=== PATIENT | female | born 1985 | race Caucasian/White ===

== ENCOUNTER 2023-07-24 21:20 | Emergency (ER) | payer MEDICAID, SELFPAY ==
[2023-07-24 21:23] VITALS: BP 101/84; PULSE 108; RESP 20; TEMP 36.8; O2SAT 100
[2023-07-24 21:50] LABS: Basophils Absolute Auto 0.1 K/mm3 (0.0-0.1); Basophils Percent Auto 0.7 % (0.2-1.2); Eosinophils Absolute Auto 0.1 K/mm3 (0-0.3); Eosinophils Percent Auto 1.1 % (0-4.4); Hematocrit 45.9 % (37.0-47.0); Hemoglobin 15.9 g/dL (12.0-15.0); Immature Granulocyte Absolute 0.02 K/mm3 (0.00-0.031); Immature Granulocyte Percent A 0.3 % (0-0.5); Lymphocytes Absolute Auto 2.41 K/mm3 (0.9-3.2); Lymphocytes Percent Auto 32.7 % (18.3-44.2); Mean Corpuscular HGB Conc 34.6 g/dl (32-36); Mean Corpuscular Hemoglobin 33.1 pg (26-34); Mean Corpuscular Volume 95.4 fl (80-100); Mean Platelet Volume 12.4 fl (7.4-10.4); Monocytes Absolute Auto 0.4 K/mm3 (0.1-0.6); Monocytes Percent Auto 5.8 % (2.6-8.5); Neutrophils Absolute Auto 4.4 K/mm3 (1.3-6.7); Neutrophils Percent Auto 59.4 % (45.5-73.1); Platelet Count Result 221 k/mm3 (150-375); Red Blood Count 4.81 M/mm3 (4.2-5.4); White Blood Count 7.4 K/mm3 (4.5-10.0)
--- NOTE | 2023-07-24 22:02 | ED.PSYCH ---
HPI - Psych General Chief Complaint: Psychiatric Symptoms <Altagracia Kulkarni PA-C - Last Filed: 08/07/23 13:33> Stated Complaint: etoh, si <Altagracia Kulkarni PA-C - Last Filed: 08/07/23 13:33> Time Seen by Provider: 07/24/23 21:47 <Altagracia Kulkarni PA-C - Last Filed: 08/07/23 13:33> Source: patient <Altagracia Kulkarni PA-C - Last Filed: 08/07/23 13:33> Mode of arrival: EMS <Altagracia Kulkarni PA-C - Last Filed: 08/07/23 13:33> Limitations: intoxication <Altagracia Kulkarni PA-C - Last Filed: 08/07/23 13:33> History of Present Illness HPI Narrative: This is a 37 year old female that presents to the ER for suicidal ideation. Reports she had been drinking at home tonight. She has been having suicidal thoughts recently. She was thinking about jumping off of a tall building. Reports no previous suicidal attempts or psychiatric hospitalizations. Patient's cousin provides some additional history. She does report patient has history of self harm. She has been expressing suicidal thoughts the last week. Her ex- called her cousin because he was worried about her. <Altagracia Kulkarni PA-C - Last Filed: 08/07/23 13:33> Related Data Allergies/Adverse Reactions: Allergies Allergy/AdvReac Type Severity Reaction Status Date / Time No Known Allergies Allergy Unverified 09/18/17 13:59 <Altagracia Kulkarni PA-C - Last Filed: 08/07/23 13:33> Review of Systems Review of Systems: CONSTITUTIONAL: Denies fever PSYCHIATRIC: Reports depression. <Altagracia Kulkarni PA-C - Last Filed: 08/07/23 13:33> All systems reviewed & are unremarkable except as noted in HPI and below <Atlagracia Kulkarni PA-C - Last Filed: 08/07/23 13:33> PMFSH Past Medical History Medical History: Medical History (Updated 08/07/23 @ 13:33 by Altagracia Kulkarni PA-C) No active medical problems <Altagracia Kulkarni PA-C - Last Filed: 08/07/23 13:33> Social History Social History: Social History Smoking status: Never smoker Alcohol intake: current Substance use type: former substance user and marijuana <Altagracia Kulkarni PA-C - Last Filed: 08/07/23 13:33> Exam Narrative: GENERAL: Disheveled, well-nourished, and in no acute distress. HEAD: Normocephalic, atraumatic. EYES: EOMI. CHEST: No respiratory distress. HEART: Regular rate EXTREMITIES: Normal range of motion. No edema. SKIN: Warm, dry, no rash. NEURO: No focal deficits. Alert and oriented x3. PSYCH: Normal mood and affect <Altagracia Kulkarni PA-C - Last Filed: 08/07/23 13:33> Course Course Emergency Course: Patient hydrating and resting. Will need to continue to await patient being sober for evaluation by crisis. Ethanol redraw timed as well as repeat CBC and BMP <Altagracia Kulkarni PA-C - Last Filed: 08/07/23 13:33> Reevaluation(s) Reevaluation #1: Patient was medically cleared and sober. Patient was evaluated by the crisis counselor. Patient denies any homicidal or suicidal ideation. Patient did sign a safety agreement. Patient have close follow-up. <Rohit Khan MD - Last Filed: 07/25/23 17:45> Vital Signs Vital signs: Vital Signs Temperature 98.2 F 07/24/23 21:23 Pulse Rate 108 H 07/24/23 21:23 Respiratory Rate 20 07/24/23 21:23 Blood Pressure 101/84 07/24/23 21:23 Pulse Oximetry 100 07/24/23 21:23 Oxygen Delivery Room Air 07/24/23 21:23 Temperature 98.2 F 07/24/23 21:23 Pulse Rate 80 07/25/23 07:16 Respiratory Rate 16 07/25/23 07:16 Blood Pressure 122/80 07/25/23 07:16 Pulse Oximetry 98 07/25/23 07:16 Oxygen Delivery Room Air 07/24/23 21:23 <Altagracia Kulkarni PA-C - Last Filed: 08/07/23 13:33> Vital Signs Temperature 98.2 F 07/24/23 21:23 Pulse Rate 108 H 07/24/23 21:23 Respiratory Rate 20 07/24/23 21:23 Blood Pressure 101/84 07/24/23 21:23 Pulse Oximetry 100 07/24/23 21:23 Oxygen Delivery Room Air 07/24/23 21:23 Temperatu
[2023-07-24 22:07] LABS: Alanine Aminotransferase 13 U/L (6-35); Albumin Level 5.1 g/dL (3.5-5.1); Alkaline Phosphatase 63 U/L (38-126); Anion Gap 15 mmol/L (4-12); Aspartate Amino Transferase 20 U/L (14-36); Bilirubin,Total 0.3 mg/dL (0.2-1.3); Blood Urea Nitrogen 5 mg/dL (7-17); Calcium 9.9 mg/dL (8.4-10.2); Carbon Dioxide 23 mmol/L (22-30); Chloride 109 mmol/L (98-107); Estimated CRCL calculation 75 ml/min; Estimated Glomerular Filt Rate > 60; Glucose 152 mg/dL (65-110); Potassium 3.4 mmol/L (3.4-5.0); Sodium 147 mmol/L (137-145)
[2023-07-24] MEDS: LACTATED RINGERS 1,000 ML 999 ML IV CONT (22:19)
[2023-07-24] MEDS: ONDANSETRON INJ 4 MG/2 ML VIAL IV PUSH (22:19)
[2023-07-24 22:26] LABS: Influenza A QL RT-PCR Negative (Negative); Influenza B QL RT-PCR Negative (Negative); RSV RNA, RT-PCR Negative (Negative); SARS-CoV-2 RNA PCR Negative (Negative)
[2023-07-24 22:33] LABS: Ethanol 350 mg/dL (<10)
[2023-07-24 23:17] LABS: Amphetamine Screen Urine Negative (Negative); Barbiturate Screen Urine Negative (Negative); Benzodiazepines Screen Urine Negative (Negative); Cannabinoid Screen Urine Positive (Negative); Cocaine Screen Urine Negative (Negative); Methadone Screen Urine Negative (Negative); Opiate Screen Urine Negative (Negative); Phencyclidine Screen Urine Negative (Negative)
[2023-07-24 23:35] LABS: Free T4 Free Thyroxine Reflex 1.19 ng/dL (0.78-2.19)
[2023-07-24 23:41] LABS: Appearance Urine Clear (Clear); Bacteria Urine None Seen /hpf; Bilirubin Urine Negative (Negative); Blood Urine 1+ (Negative); Color Urine Yellow (Yellow); Glucose Urine UA Negative (Negative); Ketones Urine Negative (Negative); Leukocyte Esterase Ur Negative LEU/UL (Negative); Nitrate Urine Negative (Negative); Non Pathogenic Casts 0-2; Protein Urine Negative (Negative); RBC Urine 0-2 /hpf (0-2); Specific Grav Ur 1.005 (1.001-1.035); Squamous Epithelial Cell Urine Occasional /hpf (Few); Urobilinogen Urine 0.2 mg/dL (<2.0); WBC Urine 0-5 /hpf (0-3)
[2023-07-24 23:42] LABS: Add Urine Microscopic? YES
--- NOTE | 2023-07-25 00:12 | PC.NURSE ---
Family at bedside states they were like to be contacted with any updates; [phone] [facility].
[2023-07-25] MEDS: THIAMINE HCL INJ 100 MG, FOLIC ACID INJ 1 MG, MAGNESIUM SULFATE INJ 1 GM in LACTATED RI... IV CONT (00:25)
[2023-07-25] MEDS: ACETAMINOPHEN 325 MG TABLET 650 MG PO (06:49)
[2023-07-25 07:16] VITALS: BP 122/80; PULSE 80; RESP 16; O2SAT 98
--- NOTE | 2023-07-25 07:38 | PC.NURSE ---
Breakfast tray ordered for pt.
[2023-07-25 08:34] LABS: Basophils Percent Auto 0.4 % (0.2-1.2); Eosinophils Absolute Auto 0.1 K/mm3 (0-0.3); Eosinophils Percent Auto 0.6 % (0-4.4); Ethanol 93 mg/dL (<10); Hematocrit 38.8 % (37.0-47.0); Hemoglobin 13.1 g/dL (12.0-15.0); Immature Granulocyte Absolute 0.03 K/mm3 (0.00-0.031); Immature Granulocyte Percent A 0.4 % (0-0.5); Lymphocytes Absolute Auto 1.41 K/mm3 (0.9-3.2); Lymphocytes Percent Auto 17.6 % (18.3-44.2); Mean Corpuscular HGB Conc 33.8 g/dl (32-36); Mean Corpuscular Hemoglobin 32.6 pg (26-34); Mean Corpuscular Volume 96.5 fl (80-100); Mean Platelet Volume 12.3 fl (7.4-10.4); Monocytes Absolute Auto 0.7 K/mm3 (0.1-0.6); Monocytes Percent Auto 8.3 % (2.6-8.5); Neutrophils Absolute Auto 5.8 K/mm3 (1.3-6.7); Neutrophils Percent Auto 72.7 % (45.5-73.1); Platelet Count Result 182 k/mm3 (150-375); Red Blood Count 4.02 M/mm3 (4.2-5.4)
[2023-07-25 08:36] LABS: Anion Gap 5 mmol/L (4-12); Blood Urea Nitrogen 5 mg/dL (7-17); Calcium 8.5 mg/dL (8.4-10.2); Carbon Dioxide 28 mmol/L (22-30); Chloride 108 mmol/L (98-107); Estimated CRCL calculation 98 ml/min; Estimated Glomerular Filt Rate > 60; Glucose 98 mg/dL (65-110); Potassium 3.7 mmol/L (3.4-5.0); Sodium 141 mmol/L (137-145)
== END 2023-07-25 10:49 | disposition home or self-care (01) ==
PROVIDERS: Physician Assistant; Emergency Provider Emergency Medicine
DX: R45.851 Suicidal ideations (principal); F10.120 Alcohol abuse with intoxication, uncomplicated; Y90.8 Blood alcohol level of 240 mg/100 ml or more
CPT/HCPCS: 36415; 80048; 80053; 80307; 81001; 81025; 84439; 84443; 84480; 85025; 87637; 96361; 96365; 96366; 96374; 99284; A9270; J2405; J3411; J3475; J7120